=== PATIENT | female | born 1975 | race Caucasian/White ===

== ENCOUNTER 2016-10-14 09:20 | Emergency (ER) | payer OTHER ==
[~2016-10-14] VITALS: Ht 165.1 cm; Wt 103.2 kg
[~2016-10-14 09:20] MED LIST: AMOX TR-K CLV1 EAC4; BENTYL20 MG PO; BENZONATATE200 MG; CYCLOBENZAPR TAB 10M; DAILY VITAMIN1 EAC8 PO; DEPAKOTE125 MG PO; ENDOCET 5-3251 EACH; HYDROCHLOROTH12.5 M3 PO; HYDROCODON-ACE1 EACH; LISINOPRIL40 MG PO; LORATADINE10 M2; NABUMETONE750 MG PO; NAPROSYN500 MG PO; NORVASC10 MG PO; NORVASC2.5 MG PO; PERCOCET 5/31 TABLET PO; PROMETHAZINE HC25 M1 PO; PROTONIX40 MG PO; TYLENOL WITH C1 EACH PO; VALACYCLOVIR500 MG; VALTREX1000 MG PO; ZESTRIL2.5 MG PO; ZITHROMAX250 MG
[2016-10-14 09:53] LABS: BASOPHIL COUNT 0.1 K/uL (0-0.1); EOSINOPHIL (%) 0.7 % (0-5); EOSINOPHIL COUNT 0.1 K/uL (0-0.3); HEMATOCRIT 41.7 % (36.0-46.0); IMMATURE GRANULOCYTE (%) 0.4 % (0.0-0.7); LYMPHOCYTE COUNT 1.7 K/uL (1.0-2.8); MCH 31.3 PG (29.0-34.0); MCHC 34.3 G/DL (30.0-36.0); MCV 91.2 FL (83-99); MONOCYTE (%) 5.9 % (3-12); MONOCYTE COUNT 0.6 K/uL (0-0.8); NEUTROPHIL (%) 76.1 % (45-76); RBC DIS.WIDTH-CV 13.2 % (11.8-14.6); RBC DIS.WIDTH-SD 43.9 % (39-53); RED BLOOD COUNT 4.57 M/uL (3.80-5.20); WHITE BLOOD COUNT 10.5 K/uL (4.1-10.2)
[2016-10-14 09:56] LABS: ADD MIUA? YES; BILIRUBIN NEGATIVE; BLOOD NEGATIVE; COLOR YELLOW ((YELLOW)); GLUCOSE (STRIP) NEGATIVE; KETONES NEGATIVE; LEUKOCYTES TRACE; NITRITE NEGATIVE; PROTEIN (STRIP) 30; UROBILINOGEN 0.2 MG/DL (0.2-1.0)
[2016-10-14 10:04] LABS: CHLORIDE 105 mEq/L (99-109); SODIUM 139 mEq/L (136-147)
[2016-10-14 10:06] LABS: GLUCOSE 106 mg/dL (70-99)
[2016-10-14 10:07] LABS: ANION GAP 13 MEQ/L (2-14)
[2016-10-14 10:08] LABS: TOTAL BILIRUBIN 1.1 mg/dL (0.0-1.0)
[2016-10-14 10:10] LABS: BACTERIA RARE /HPF; EPITHELIAL CELLS 1+ /HPF; MUCUS 2+ /LPF; UCUL ADDED? NO
[2016-10-14 10:10] LABS: ALKALINE PHOSPHATASE 77 IU/L (3-129); GFR ESTIMATE (CALCULATED) > 59 mL/min/
[2016-10-14 10:11] LABS: UREA NITROGEN (BUN) 12 mg/dL (9-23)
[2016-10-14 10:13] LABS: LIPASE 11 U/L (1.0-51.0)
[2016-10-14 10:19] LABS: QUANTITATIVE HCG < 4.0 MIU/ML
[2016-10-14 10:32] LABS: MEAN PLAT.VOLUME 9.6 uM^3 (9.5-12.4); PLAT.SUFFICIENCY ADEQUATE; PLATELET COUNT 150 K/uL (156-360)
[2016-10-14 11:48] LABS: TROP-I INTERPRETATION NEGATIVE; TROPONIN-I 0.05 ng/mL (0.0-0.30)
[2016-10-14 12:57] LABS: D-DIMER ELISA 2.52 mg/L FEU (< 0.57)
[2016-10-14 16:02] VITALS: BP 142/96
== END 2016-10-14 16:11 | disposition left against medical advice (07) ==
LOC: EME 09:20
PROVIDERS: Emergency Medicine
DX: R10.13 Epigastric pain (principal); I10 Essential (primary) hypertension
CPT/HCPCS: 71020; 71275; 74174; 76705; 80053; 81003; 83605; 83690; 84484; 84702; 85025; 85379; 93005; 99281; 99285; J2270; J2405; J3010; J7030

== ENCOUNTER 2017-01-18 09:32 | Emergency (ER) | payer SELFPAY ==
[2017-01-18] MEDS ORDERED: ZESTRIL40 MG PO (09:47)
[2017-01-18] MEDS ORDERED: CIPROFLOXACIN H10 ML BOTH EYES (09:48)
[2017-01-18] MEDS ORDERED: NAPHCON-A EYE D15 ML BOTH EYES (11:34)
[2017-01-18 11:45] VITALS: BP 149/70
== END 2017-01-18 11:46 | disposition home or self-care (01) ==
LOC: EME 09:32
DX: H10.9 Unspecified conjunctivitis (principal)
CPT/HCPCS: 99281; 99284

== ENCOUNTER 2017-09-08 09:14 | Emergency (ER) | payer OTHER ==
[~2017-09-08] VITALS: Ht 165.1 cm; Wt 102.2 kg
[~2017-09-08 09:14] MED LIST changes: +CIPROFLOXACIN H10 ML BOTH EYES; +NAPHCON-A EYE D15 ML BOTH EYES; +ZESTRIL40 MG PO
[2017-09-08 10:03] LABS: HEMATOCRIT 37.6 % (36.0-46.0); HEMOGLOBIN 13.4 G/DL (11.9-15.5); MCHC 35.6 G/DL (30.0-36.0); MCV 92.6 FL (83-99); PLATELET COUNT 356 K/uL (156-360); RBC DIS.WIDTH-CV 13.3 % (11.8-14.6); RBC DIS.WIDTH-SD 45.1 % (39-53); RED BLOOD COUNT 4.06 M/uL (3.80-5.20); WHITE BLOOD COUNT 9.2 K/uL (4.1-10.2)
[2017-09-08 10:11] LABS: CHLORIDE 104 mEq/L (99-109); POTASSIUM 3.5 mEq/L (3.7-5.4); SODIUM 140 mEq/L (136-147)
[2017-09-08 10:13] LABS: GLUCOSE 190 mg/dL (70-99)
[2017-09-08 10:17] LABS: CREATININE 0.8 mg/dL (0.6-1.3); GFR ESTIMATE (CALCULATED) > 59 mL/min/
[2017-09-08 10:18] LABS: UREA NITROGEN (BUN) 7 mg/dL (9-23)
[2017-09-08 10:24] LABS: TROP-I INTERPRETATION NEGATIVE; TROPONIN-I < 0.01 ng/mL (0.0-0.30)
[2017-09-08] MEDS ORDERED: MOTRIN600 MG PO (14:06)
[2017-09-08] MEDS ORDERED: VALIUM2 MG PO (14:06)
[2017-09-08 14:24] VITALS: BP 143/79
== END 2017-09-08 14:26 | disposition home or self-care (01) ==
LOC: EME 09:14
PROVIDERS: Nurse Practitioner Acute Care
DX: R07.81 Pleurodynia (principal); I10 Essential (primary) hypertension
CPT/HCPCS: 71046; 71275; 80048; 84484; 85027; 85379; 93005; 99281; 99285

== ENCOUNTER 2017-12-06 06:57 | Emergency (ER) | payer OTHER ==
[~2017-12-06] VITALS: Ht 165.1 cm; Wt 100.7 kg
[~2017-12-06 06:57] MED LIST changes: +MOTRIN600 MG PO; +VALIUM2 MG PO
[2017-12-06 10:14] VITALS: BP 104/79
== END 2017-12-06 10:15 | disposition home or self-care (01) ==
LOC: EME 06:57
DX: R51 Headache (principal); I10 Essential (primary) hypertension
CPT/HCPCS: 99281; 99285; J0780; J1100; J1200; J1885; J3010; J7030